=== PATIENT | male | born 1940 | race American Indian/Alaskan Native ===

== ENCOUNTER 2016-09-11 08:17 | Outpatient (CLI) | payer MEDICARE ==
[2016-09-11 09:26] LABS: Blood Urea Nitrogen 13 mg/dL (9-20)
--- NOTE | 2016-09-11 12:22 | Cat Scan Report ---
CT scan of abdomen and pelvis without IV contrast: History: Malignant deposit of prostate. Findings: Normal lung bases. No pleural pericardial effusion. Normal liver spleen pancreas and gallbladder. Normal adrenals kidney parenchyma and bladder. Prostate measures 2.9 x 4.5 cm. No free intraperitoneal fluid or air. No evidence of adenopathy. Gaseous colon with moderate volume stool in colon. Few scattered diverticuli ascending colon. Normal appendix. No evidence of diverticulitis. Impression: Diverticulosis colon.
== END 2016-09-11 08:18 | disposition home or self-care (01) ==
LOC: CT 08:17
PROVIDERS: ATTEND Urology
DX: C61 Malignant neoplasm of prostate (principal); K57.30 Diverticulosis of large intestine without perforation or abscess without bleeding; I10 Essential (primary) hypertension; F17.200 Nicotine dependence, unspecified, uncomplicated
CPT/HCPCS: 36415; 74176; 82565; 84520

== ENCOUNTER 2017-11-09 10:56 | Outpatient (CLI) | payer MEDICARE ==
--- NOTE | 2017-11-09 14:26 | Nuclear Medicine Report ---
BONE SCAN: History: Malignant neoplasm of prostate gland. Comparison: No previous bone scan at this facility. Correlation is made with a CT abdomen pelvis without contrast dated 09/11/16. After injection of isotope, gamma camera imaging of the bony system was done. There is a normal uptake of isotope throughout the bony structures without areas of significantly increased or decreased uptake. Normal uptake in the urinary system is seen. IMPRESSION: Negative bone scan. No evidence for bony metastasis.
== END 2017-11-09 10:57 | disposition home or self-care (01) ==
LOC: NM 10:56
PROVIDERS: ATTEND Urology
DX: C61 Malignant neoplasm of prostate (principal); I10 Essential (primary) hypertension; F17.210 Nicotine dependence, cigarettes, uncomplicated
CPT/HCPCS: 78306; A9503